=== PATIENT | female | born 1955 | race Caucasian/White ===

== ENCOUNTER → 2016-05-04 | Outpatient (CLI) | payer OTHER ==
[~2016-05-04] MED LIST: AMITRYPTYLINE PO; ASPIRIN PO; COLACE PO; DARVOCET-N 1001 TAB PO; FLEXERIL PO; GABAPENTIN400 M2 PO; HYDROCODON-ACE1 EAC5 PO; IBUPROFEN PO; LORTAB 10/500 T1 TAB PO; MEDROL PO; MOBIC PO; NORCO 5/325 TAB1 TAB PO; OXYCONTIN PO; PERCOCET 10/31 UDTA1; VICODIN 5/500 T1 TAB PO; ZANAFLEX4 M1 PO; ZANTAC PO; ZOLOFT PO
--- NOTE | ~2016-05-04 | CR206 ---
[facility] A Service of [facility] RADIOLOGY TEXT RESULTS PATIENT: KINZA MACDONALD LOCATION: [facility] : 53 UNIT #: [id number] AGE: [address]: Gino Vinson MD SEX: F ORDER DR: [id number] [address] [address] [id number] O MR#: [id number] Acc #: [id number] NAME: KINZA MACDONALD : 1955 SEX: F STUDY DATE/TIME: 05/04/2016 14:38 UNIT: [facility] ROOM: STUDY DESCRIPTION: CR Pelvis 1 or 2 Views Attending Physician: Gino Vinson M.D. Referring Physician: Gino Vinson M.D. Ordering Physician: Gino Vinson M.D. Primary Care Physician: No Primary Care Physician MEDICAL IMAGING REPORT This report is preliminary unless electronic signature is present. EXAM Frontal pelvis. DATE OF EXAM 05/04/2016 INDICATIONS 60-year-old female with a soft tissue strain. Pain on the left side extending down the left leg. Sciatic nerve damage. Symptoms for 2 weeks, numbness and tingling on the left. No known injury. REPORT Frontal pelvis performed. COMPARISON No comparisons. FINDINGS Probable vascular calcifications in the pelvis. The bony pelvis is intact. SI joints intact. Atherosclerotic calcifications are present. No significant hip degenerative change. IMPRESSION Essentially negative frontal pelvis. Dictated by... Roel Castillo M.D. THIS IS AN ELECTRONICALLY VERIFIED REPORT Roel Castillo M.D. at 05/05/2016 7:19 AM JLY/jt [facility] A Service [facility] RADIOLOGY TEXT RESULTS PATIENT: KINZA MACDONALD LOCATION: [facility] : 53 UNIT #: [id number] AGE: [address]: Gino Vinson MD SEX: F ORDER DR: TD: 05/04/2016 20:54 JOB #: [id number] MEDICAL IMAGING REPORT
== END | disposition home or self-care (01) ==
LOC: SRAD 14:31
DX: S39.013A Strain of muscle, fascia and tendon of pelvis, initial encounter (principal)
CPT/HCPCS: 72170

== ENCOUNTER → 2016-05-23 | Outpatient (CLI) | payer OTHER ==
--- NOTE | ~2016-05-23 | CR229 ---
[facility] A Service of [facility] RADIOLOGY TEXT RESULTS PATIENT: KINZA MACDONALD LOCATION: [facility] : 53 UNIT #: [id number] AGE: [address]: Gino Vinson MD SEX: F ORDER DR: [id number] [facility] [address] [place], [place] [address] [id number] O MR#: [id number] Acc #: [id number] NAME: KINZA MACDONALD : 1955 SEX: F STUDY DATE/TIME: 05/23/2016 11:19 UNIT: [facility] ROOM: STUDY DESCRIPTION: CR Shoulder Min 2 View Lt Attending Physician: Gino Vinson M.D. Referring Physician: Gino Vinson M.D. Ordering Physician: Gino Vinson M.D. Primary Care Physician: Ga Chow M.D. MEDICAL IMAGING REPORT This report is preliminary unless electronic signature is present EXAM Left shoulder 05/23/2016 HISTORY A 60-year-old female with left shoulder pain since March,. Known left shoulder fracture. COMPARISON Left shoulder 04/15/2016 and 03/27/2016. FINDINGS 3 views of the left shoulder demonstrate a healing transverse fracture of the surgical neck of the proximal left humerus. There is also a healing vertically oriented fracture extending into the greater tuberosity. Anatomic alignment. Humeral head normally located. Mild degenerative change of the acromioclavicular joint. Soft tissues are unremarkable. IMPRESSION 1. Healing transverse fracture of the surgical neck of the proximal left humerus. Alignment appears anatomic. There is also a healing vertically oriented fracture of the greater tuberosity which is not significantly displaced. Humeral head remains normally located. 2. Mild acromioclavicular joint arthrosis. Dictated by... Sarabjit Flood M.D. THIS IS AN ELECTRONICALLY VERIFIED REPORT Sarabjit Flood M.D. at 05/24/2016 8:26 AM RODGER/ebony [facility] A Service of [facility] RADIOLOGY TEXT RESULTS PATIENT: KINZA MACDONALD LOCATION: [facility] : 53 UNIT #: [id number] AGE: [address]: Gino Vinson MD SEX: F ORDER DR: TD: 05/23/2016 21:28 JOB #: [id number] MEDICAL IMAGING REPORT Page 1 of 1 COPY
== END | disposition home or self-care (01) ==
LOC: CRAD 10:54
DX: S42.212D Unspecified displaced fracture of surgical neck of left humerus, subsequent encounter for fracture with routine healing (principal); S42.252D Displaced fracture of greater tuberosity of left humerus, subsequent encounter for fracture with routine healing; M19.012 Primary osteoarthritis, left shoulder
CPT/HCPCS: 73030

== ENCOUNTER 2016-10-26 18:53 | Emergency (ER) | payer OTHER ==
[~2016-10-26] VITALS: Ht 177.8 cm; Wt 63.5 kg
[~2016-10-26 18:53] MED LIST changes: -GABAPENTIN400 M2 PO; -HYDROCODON-ACE1 EAC5 PO; -ZANAFLEX4 M1 PO
[2016-10-26] MEDS ORDERED: GABAPENTIN400 M2 PO (19:09)
[2016-10-26] MEDS ORDERED: ZANAFLEX4 M1 PO (19:10)
[2016-10-26] MEDS ORDERED: HYDROCODON-ACE1 EAC5 PO (19:11)
== END 2016-10-26 20:40 | disposition home or self-care (01) ==
LOC: SED 18:53
DX: M54.5 Low back pain (principal); G89.29 Other chronic pain; Z88.2 Allergy status to sulfonamides; F17.200 Nicotine dependence, unspecified, uncomplicated; Z79.899 Other long term (current) drug therapy
CPT/HCPCS: 96372; 99283; J1040; J1885; J2360